=== PATIENT | female | born 1995 | race Caucasian/White ===

== ENCOUNTER 2016-10-06 13:02 | Emergency (ER) | payer SELFPAY ==
[2016-10-06 13:22] VITALS: BP 134/78
--- NOTE | 2016-10-06 13:34 | ER Document Report ---
ED Medical Screen (RME) - General Chief Complaint: Urinary Problem Stated Complaint: URNIARY PROBLEM Notes: 3 days urinary urgency, pyuria no hematuria admits to back pain as vaginal discharge with pelvic cramps LMP: 09/22/2016 I have greeted and performed a rapid initial assessment of this patient. A comprehensive ED assessment and evaluation of the patient, analysis of test results and completion of the medical decision making process will be conducted by additional ED providers. TRAVEL OUTSIDE OF THE [place] IN LAST 30 DAYS: No - Related Data Allergies/Adverse Reactions: Penicillins Allergy (Unknown, Verified 10/06/16 13:32) Past Medical History GI Medical History: Denies: Hx Gastroesophageal Reflux Disease - Immunizations Immunizations up to date: Yes Hx Diphtheria, Pertussis, Tetanus Vaccination: Yes Physical Exam - Vital signs Vitals: Temp Pulse Resp BP Pulse Ox 98.0 F 100 16 134/78 H 99 10/06/16 13:21 10/06/16 13:21 10/06/16 13:21 10/06/16 13:21 10/06/16 13:21 Course - Vital Signs Vital signs: Temp Pulse Resp BP Pulse Ox 98.0 F 100 16 134/78 H 99 10/06/16 13:21 10/06/16 13:21 10/06/16 13:21 10/06/16 13:21 10/06/16 13:21
[2016-10-06 14:04] LABS: APPEARANCE,URINE SLIGHTLY-CLOUDY; BILIRUBIN,URINE NEGATIVE (NEGATIVE); GLUCOSE, URINE NEGATIVE (NEGATIVE); KETONES,URINE NEGATIVE (NEGATIVE); LEUKOCYTE ESTERASE,URINE SMALL (NEGATIVE); NITRITE,URINE NEGATIVE (NEGATIVE); PROTEIN,URINE 30 mg/dL (NEGATIVE); URINE SPECIFIC GRAVITY 1.027
--- NOTE | 2016-10-06 15:32 | ER Document Report ---
ED General - General Chief Complaint: Urinary Problem Stated Complaint: URNIARY PROBLEM Mode of Arrival: Ambulatory Information source: Patient TRAVEL OUTSIDE OF THE [place] IN LAST 30 DAYS: No - HPI Onset: Other - This 21-year-old female presents to the emergency room today stating that she had frequency urgency burning for approximately one week. That she has been taking cranberry tablets to try and Aleve which he felt was probably urinary tract infection has not had any success. - Related Data Allergies/Adverse Reactions: Penicillins Allergy (Unknown, Verified 10/06/16 13:32) Past Medical History - Social History Smoking Status: Current Every Day Smoker Chew tobacco use (# tins/day): No Frequency of alcohol use: None Drug Abuse: None Family History: Reviewed & Not Pertinent Patient has suicidal ideation: No Patient has homicidal ideation: No Renal/ Medical History: Denies: Hx Peritoneal Dialysis GI Medical History: Denies: Hx Gastroesophageal Reflux Disease - Immunizations Immunizations up to date: Yes Hx Diphtheria, Pertussis, Tetanus Vaccination: Yes Review of Systems - Review of Systems Constitutional: No symptoms reported EENT: No symptoms reported Cardiovascular: No symptoms reported Respiratory: No symptoms reported Gastrointestinal: No symptoms reported Genitourinary: No symptoms reported Female Genitourinary: No symptoms reported Musculoskeletal: No symptoms reported Skin: No symptoms reported Hematologic/Lymphatic: No symptoms reported Neurological/Psychological: No symptoms reported Physical Exam - Vital signs Vitals: Temp Pulse Resp BP Pulse Ox 98.0 F 100 16 134/78 H 99 10/06/16 13:21 10/06/16 13:21 10/06/16 13:21 10/06/16 13:21 10/06/16 13:21 Interpretation: Normal - General General appearance: Appears well, Alert - HEENT Head: Normocephalic, Atraumatic Eyes: Normal Pupils: PERRL - Respiratory Respiratory status: No respiratory distress Chest status: Nontender Breath sounds: Normal Chest palpation: Normal - Cardiovascular Rhythm: Regular Heart sounds: Normal auscultation Murmur: No - Abdominal Inspection: Normal Distension: No distension Bowel sounds: Normal Tenderness: Nontender Organomegaly: No organomegaly - Back Back: Normal, Nontender - Extremities General upper extremity: Normal inspection, Nontender, Normal color, Normal ROM , Normal temperature General lower extremity: Normal inspection, Nontender, Normal color, Normal ROM , Normal temperature, Normal weight bearing. No: Saritha's sign - Neurological Neuro grossly intact: Yes Cognition: Normal Orientation: AAOx4 Aida Coma Scale Eye Opening: Spontaneous Aida Coma Scale Verbal: Oriented Aida Coma Scale Motor: Obeys Commands [place] Coma Scale Total: 15 Speech: Normal Motor strength normal: LUE, RUE, LLE, RLE Sensory: Normal - Psychological Associated symptoms: Normal affect, Normal mood - Skin Skin Temperature: Warm Skin Moisture: Dry Skin Color: Normal Course - Vital Signs Vital signs: Temp Pulse Resp BP Pulse Ox 98.0 F 100 16 134/78 H 99 10/06/16 13:21 10/06/16 13:21 10/06/16 13:21 10/06/16 13:21 10/06/16 13:21 - Laboratory Laboratory results interpreted by me: 10/06/16 13:44 Urine Protein 30 H Urine Urobilinogen 2.0 H Ur Leukocyte Esterase SMALL H 10/06/16 15:28 Discharge - Discharge Clinical Impression: UTI (urinary tract infection) Condition: Stable Disposition: HOME, SELF-CARE Instructions: Urinary Tract Infection ([facility]), Nitrofurantoin ([facility]) Additional Instructions: Urinary Tract Infection Your evaluation indicates that you have a urinary tract infection. This is due to germs growing in the bladder. This is a common problem. This infection usually responds quickly to antibiotics. Your antibiotic should be taken exactly as prescribed. Drink plenty of fluids -- three to four quarts a day. Occasionally, a bladder anesthetic will be prescribed to help stop the feeling of urgency until the antibiotic has a chance to clear the infection. This may cause your urine to be dark orange. Certain urine infections require a culture. If the doctor obtained a culture, the results will be back in two days. You should call to see if a change in treatment is needed. A repeat urinalysis after you finish treatment is often recommended. The physician will let you know if further testing is required. Call the doctor if you develop fever, chills, flank pain, inability to urinate, or blood in the urine. Follow-up with private doctor in 1 to 2 days for final radiology readings please return to the emergency room for any change worsening condition. Follow up with private M.D. for all other routine health care needs. Prescriptions: Cephalexin Monohydrate [Keflex 500 mg Capsule] 500 mg PO QID #20 capsule Phenazopyridine HCl [Pyridium 200 mg Tablet] 200 mg PO TID #15 tablet
== END 2016-10-06 16:26 | disposition home or self-care (01) ==
LOC: ER 13:02
DX: N39.0 Urinary tract infection, site not specified (principal); F17.200 Nicotine dependence, unspecified, uncomplicated; Z88.0 Allergy status to penicillin
CPT/HCPCS: 81001; 87086; 99283

== ENCOUNTER 2018-06-12 14:08 | Emergency (ER) | payer SELFPAY ==
[2018-06-12] MEDS ORDERED: CIPROFLOXACIN HCL/DEXAMETH OTIC DROP 7.5 ML AD ONE (14:37)
[2018-06-12] MEDS ORDERED: DEXAMETHASONE SOD PHOS INJ 10 MG/1 ML VIAL IM ONE (14:42)
--- NOTE | 2018-06-12 14:57 | ER Document Report ---
ED Respiratory Problem - General Chief Complaint: Cold Symptoms Stated Complaint: ABDOMINAL PAIN, EAR AND THROAT PAIN Time Seen by Provider: 06/12/18 14:23 Mode of Arrival: Ambulatory Information source: Patient Notes: Patient is a 23-year-old female comes emergency room with a 3-day onset of fever cold cough and congestion. She also complaining about right ear pain. She states she has vomited a few times and she just feels like "I am dying". Patient works at [employer] and had to call out of work yesterday and today because of how sick she feels. She states she only has a history medically zabala of polycystic ovarian disease and her periods are not regular because of this. Her last menstrual period was 2 months ago. She also states she has a history of STDs last time in January where she was treated and thinks that she is much better now. She currently wants us to only treat the complaint of congestion runny nose and cough. TRAVEL OUTSIDE OF THE [place] IN LAST 30 DAYS: No - HPI Patient complains to provider of: Cough Onset: Other - 3 days Duration: Continuous, Worse/persistent Initiating Event: Allergy, Exertion, Exposure to dust, URI Quality of pain: No pain Short of Breath: Moderate Cough: Productive Sputum amount: Scant Sputum color: Yellow Sputum consistency: Thick Associated symptoms: Chills, Congestion, Cough, Earache, Facial pain, PND, Runny nose, Wheezing Similar symptoms previously: No Recently seen / treated by doctor: No - Related Data Allergies/Adverse Reactions: Penicillins Allergy (Unknown, Verified 06/12/18 14:09) Past Medical History - General Information source: Patient - Social History Smoking Status: Current Every Day Smoker Cigarette use (# per day): Yes - Half-pack a day Chew tobacco use (# tins/day): No Smoking Education Provided: Yes Frequency of alcohol use: None Drug Abuse: Marijuana Lives with: Family Family History: Reviewed & Not Pertinent Patient has suicidal ideation: No Patient has homicidal ideation: No Renal/ Medical History: Denies: Hx Peritoneal Dialysis GI Medical History: Denies: Hx Gastroesophageal Reflux Disease - Immunizations Immunizations up to date: Yes Hx Diphtheria, Pertussis, Tetanus Vaccination: Yes Review of Systems - Review of Systems Constitutional: See HPI, Chills, Fever, Weakness EENT: Ear pain, Nose congestion, Nose discharge, Throat pain. denies: Ear discharge Cardiovascular: No symptoms reported Respiratory: See HPI, Cough, Wheezing Gastrointestinal: No symptoms reported Genitourinary: No symptoms reported Female Genitourinary: No symptoms reported Musculoskeletal: No symptoms reported Skin: No symptoms reported Hematologic/Lymphatic: No symptoms reported Neurological/Psychological: No symptoms reported -: Yes All other systems reviewed and negative Physical Exam - Vital signs Vitals: Temp Pulse Resp BP Pulse Ox 99.1 F 87 18 122/86 H 98 06/12/18 14:16 06/12/18 14:16 06/12/18 14:16 06/12/18 14:16 06/12/18 14:16 - Notes Notes: Patient is a 22-year-old female is well-nourished well-developed in no apparent distress. She does appear ill by her looks. He sounds congested - General General appearance: Alert - HEENT Head: Normocephalic, Atraumatic Eyes: Normal Ears: Pinna tenderness, Tragus tenderness External canal: Erythema, Swollen, Other - Examination patient's right ear shows the external canal to be very erythematous the landmarks are obscured. TM appears to be bulging with a serous fluid behind it. Canal looks irritated secondary to Q-tip use. And also to water exposure. Patient stated that she runs water in that ear because she wants it clean. And when it started to hurt she kept using Q-tips to try and get stuff out. She developed a otitis externa on the right. TM appears intact. Sinus: Maxillary, Swelling, Tenderness, Other - Patient displays. No: Frontal - maxillary tenderness greater on the right than the left. Frontals are negative for tenderness Nasal: Purulent discharge, Other - Examination of the nares shows they are erythematous and edematous with some purulent colored discharge. Mouth/Lips: Normal. No: Angioedema Mucous membranes: Normal, Moist Pharynx: Erythema, Post nasal drainage, Uvular edema. No: Exudate, Peritonsillar abscess, Retropharyngeal abscess, Tonsillar hypertrophy, Potential airway comprom. Neck: Anterior cervical chain, Lymphadenopathy, Supple. No: Posterior cervical chain, Carotid bruit, Kernig's, Meningismus, Neck mass, Shotty nodes, Subcutaneous emphysema, Thyroid nodule - Respiratory Respiratory status: No respiratory distress Chest status: Nontender Breath sounds: Decreased air movement, Rhonchi, Wheezing, Other - Auscultation patient's lungs show she has bilateral breath sounds breath sounds moderately decreased throughout there is a faint inspiratory expiratory wheeze noted. There is also upper airway rhonchi noted that clears on cough.. No: Rales, Stridor Chest palpation: Normal - Cardiovascular Rhythm: Regular Heart sounds: Normal auscultation Murmur: No - Abdominal Inspection: Normal Distension: No distension Bowel sounds: Normal Tenderness: Nontender Organomegaly: No organomegaly - Neurological Neuro grossly intact: Yes Orientation: AAOx4 Aida Coma Scale Eye Opening: Spontaneous Mobile Coma Scale Verbal: Oriented Mobile Coma Scale Motor: Obeys Commands Mobile Coma Scale Total: 15 Speech: Normal - Skin Skin Temperature: Warm Skin Moisture: Dry Skin Color: Normal, [place] Course - Re-evaluation Re-evalutation: 06/12/18 15:03 I had a long discussion with patient first she has a history of STDs and had originally wanted us to check it but then declined since she [facility] to the [facility]. She wanted us to center mostly on her upper respiratory kind of symptoms which we have and at this point giving that she has just a faint inspiratory expiratory wheeze and severe sinus congestion with drainage at this point I do not believe that any chest x-ray is needed. She is satting fine heart rates normal. We will treat with steroid taper, Sudafed, and Zithromax. Normally I would not treat with antibiotics but given patient has been attempting all the [id number] medications without any success and she has been getting more and more congested with a definite color to her sputum, I believe that this is warranted to do a short course of antibiotics. She informed me that having fevers of greater than 100.5 with chills at home and here she was running around 99 which is technically not a fever but she is taken ibuprofen/Tylenol recently. - Vital Signs Vital signs: Temp Pulse Resp BP Pulse Ox 99.1 F 87 18 122/86 H 98 06/12/18 14:16 06/12/18 14:16 06/12/18 14:16 06/12/18 14:16 06/12/18 14:16 Discharge - Discharge Clinical Impression: Otitis externa Qualifiers: Otitis externa type: unspecified type Chronicity: acute Laterality: right Qualified Code(s): H60.501 - Unspecified acute noninfective otitis externa, right ear Asthmatic bronchitis Qualifiers: Asthma severity: moderate Asthma persistence: persistent Asthma complication type: uncomplicated Qualified Code(s): J45.40 - Moderate persistent asthma, uncomplicated Sinusitis Qualifiers: Sinusitis location: maxillary Chronicity: acute Recurrence: non-recurrent Qualified Code(s): J01.00 - Acute maxillary sinusitis, unspecified Pharyngitis Qualifiers: Pharyngitis/tonsillitis etiology: unspecified etiology Qualified Code(s): J02.9 - Acute pharyngitis, unspecified Instructions: Use of Ear Drops ([facility]), Otitis Externa ([facility]), Bronchitis With Bronchospasm (Wheezing) ([facility]), Tonsillitis ([facility]) Additional Instructions: Home and rest today. Medication as prescribed. Use nasal saline 3-4 times a day to keep the nose moist and secretions then. As we discussed you may benefit from using some Afrin nasal spray. As I informed you this is a habit- forming type of medication because it works so well. Only use it at night before bed 2 sprays in each side of the nose this will allow you to open your airway up and breathe while you sleep. Leave it at home do not take it with you to work to get attempted to use it. Remember the more you use it more you have to use it in the least effective it is. So use it only at night. Decrease smoking as much as possible. As we have also discussed you have a infection to your canal on the right ear. Avoid using any kind of Q-tips at all. Avoid putting water in the ear must stay dry. Use the drops apply the drops 3 drops to that ear twice a day for 7 days. Should you have any concerns or problems if he spike a fever that is not controlled with Tylenol or Motrin or you become more short of breath return to ER for recheck. May also use the [facility] card for discount on your medication. Prescriptions: Azithromycin [Zithromax 250 mg Tablet] 250 mg PO ASDIR PRN #6 tablet PRN Reason: Prednisone [Sterapred Ds] 10 mg PO ASDIR PRN 6 Days #1 tab.ds.pk PRN Reason: Pseudoephedrine HCl [Sudafed 12 Hour] 120 mg PO BID #20 tablet.er Forms: Smoking Cessation Education, Return to Work
[2018-06-12 15:36] VITALS: BP 115/76
== END 2018-06-12 15:36 | disposition home or self-care (01) ==
LOC: ER 14:08
DX: J45.40 Moderate persistent asthma, uncomplicated (principal); J01.00 Acute maxillary sinusitis, unspecified; H60.501 Unspecified acute noninfective otitis externa, right ear; J02.9 Acute pharyngitis, unspecified; R10.9 Unspecified abdominal pain; R50.9 Fever, unspecified; R05 Cough; R09.81 Nasal congestion; H92.01 Otalgia, right ear; F17.210 Nicotine dependence, cigarettes, uncomplicated
CPT/HCPCS: 99283; 96372; J3490; J1100

== ENCOUNTER 2018-07-24 15:32 | Emergency (ER) | payer SELFPAY ==
[2018-07-24] MEDS ORDERED: IPRATROPIUM/ALBUTEROL 0.5-2.5 MG/3 ML AMPUL NEB ONE (16:13)
--- NOTE | 2018-07-24 16:38 | ER Document Report ---
HPI - HPI Patient complains to provider of: Cough Time Seen by Provider: 07/24/18 16:05 Onset: Last week Onset/Duration: Persistent Quality of pain: Achy Severity: Severe Pain Level: 5 Context: She presents emergency department with complaints of cough congestion and body aches for 1 week. Denies fever vomiting diarrhea. Reports she did have a temperature of 99.2 nights ago. Associated Symptoms: Nonproductive cough, Fever Exacerbated by: Denies Relieved by: Denies Similar symptoms previously: No Recently seen / treated by doctor: No - REPRODUCTIVE Reproductive: DENIES: : Past Medical History - General Information source: Patient Last Menstrual Period: 3Months ago patient reports she is irregular - Social History Smoking Status: Current Every Day Smoker Cigarette use (# per day): Yes Frequency of alcohol use: None Drug Abuse: None Occupation: [employer] Family History: Reviewed & Not Pertinent Patient has suicidal ideation: No Patient has homicidal ideation: No - Medical History Medical History: Negative Renal/ Medical History: Denies: Hx Peritoneal Dialysis GI Medical History: Denies: Hx Gastroesophageal Reflux Disease Surgical Hx: Negative - Immunizations Immunizations up to date: Yes Hx Diphtheria, Pertussis, Tetanus Vaccination: Yes Vertical Provider Document - CONSTITUTIONAL Agree With Documented VS: Yes Exam Limitations: No Limitations General Appearance: WD/WN, No Apparent Distress - INFECTION CONTROL TRAVEL OUTSIDE OF THE [place] IN LAST 30 DAYS: No - HEENT HEENT: Atraumatic, Normocephalic. negative: Conjuctival Injection, Pharyngeal Exudate, Pharyngeal Tenderness, Pharyngeal Erythema, Tympanic Membrane Red, Tympanic Membrane Bulging - NECK Neck: Normal Inspection, Supple. negative: Lymphadenopathy-Left, Lymphadenopathy-Right - RESPIRATORY Respiratory: No Respiratory Distress, Chest Non-Tender, Rhonchi, Wheezing - CARDIOVASCULAR Cardiovascular: Regular Rate - GI/ABDOMEN Gastrointestinal: Abdomen Soft, Abdomen Non-Tender - MUSCULOSKELETAL/EXTREMETIES Musculoskeletal/Extremeties: SHERRI PASTRANA - NEURO Level of Consciousness: Awake, Alert, Appropriate Motor/Sensory: No Motor Deficit - DERM Integumentary: Warm, Dry, No Rash Course - Re-evaluation Re-evalutation: 07/24/18 16:36 Neb treatment and chest x-ray ordered. 07/24/18 17:37 She instructed on left lower lobe pneumonia instructed on Z-Korey Tessalon Perles albuterol inhaler as well as [place]. Patient instructed on the importance of monitoring to assure follow-up with her primary care provider for recheck. She verbalized understanding to all instructions. She reports she felt better after the neb treatment. Dictation of this chart was performed using voice recognition software; therefore, there may be some unintended grammatical errors. 07/24/18 17:37 - Vital Signs Vital signs: Temp Pulse Resp BP Pulse Ox 98.3 F 71 16 118/73 94 07/24/18 15:56 07/24/18 15:56 07/24/18 15:56 07/24/18 15:56 07/24/18 15:56 - Diagnostic Test Radiology reviewed: Image reviewed, Reports reviewed - XAM DESCRIPTION: CHEST 2 VIEWS COMPLETED DATE/TIME: 07/24/2018 4:35 pm REASON FOR STUDY: cough, fever COMPARISON: None. EXAM PARAMETERS: NUMBER OF VIEWS: two views TECHNIQUE: Digital Frontal and Lateral radiographic views of the chest acquired. RADIATION DOSE: NA LIMITATIONS: none FINDINGS: LUNGS AND PLEURA: Parenchymal opacity at the left base. Right lung is clear. MEDIASTINUM AND HILAR STRUCTURES: No masses or contour abnormalities. HEART AND VASCULAR STRUCTURES: Heart normal size. No evidence for failure. BONES: No acute findings. HARDWARE: None in the chest. OTHER: No other significant finding. IMPRESSION: Left lower lobe pneumonia Discharge - Discharge Clinical Impression: Cough congestion wheeze Left lower lobe pneumonia Qualifiers: Pneumonia type: due to unspecified organism Qualified Code(s): J18.1 - Lobar pneumonia, unspecified organism Condition: Stable Disposition: HOME, SELF-CARE Instructions: Azithromycin ([facility]), Bronchodilators ([facility]), Tessalon Perles ([facility]) , Pneumonia ([facility]), Oral Narcotic Medication ([facility]) Additional Instructions: *You have been evaluated for cough,congestion, pneumonia *Increase fluid intake as discussed *Take Tylenol or Motrin for aches and pains *Take medication as prescribed *Use the inhaler as indicated *Monitor your temperature, take Tylenol as indicated *Follow up with a primary care provider within one week *Quit smoking *Return to ED for worsening condition, changes, needs, increased cough, difficulty breathing, concerns Prescriptions: Azithromycin [Zithromax 250 mg Tablet] 250 mg PO ASDIR PRN #6 tablet PRN Reason: Benzonatate [Tessalon Perles 100 mg Capsule] 100 mg PO ASDIR PRN #40 capsule PRN Reason: Forms: Smoking Cessation Education, Return to Work
--- NOTE | 2018-07-24 16:51 | RADIOLOGY REPORT (SQ) ---
EXAM DESCRIPTION: CHEST 2 VIEWS COMPLETED DATE/TIME: 07/24/2018 4:35 pm REASON FOR STUDY: cough, fever COMPARISON: None. EXAM PARAMETERS: NUMBER OF VIEWS: two views TECHNIQUE: Digital Frontal and Lateral radiographic views of the chest acquired. RADIATION DOSE: NA LIMITATIONS: none FINDINGS: LUNGS AND PLEURA: Parenchymal opacity at the left base. Right lung is clear. MEDIASTINUM AND HILAR STRUCTURES: No masses or contour abnormalities. HEART AND VASCULAR STRUCTURES: Heart normal size. No evidence for failure. BONES: No acute findings. HARDWARE: None in the chest. OTHER: No other significant finding. IMPRESSION: Left lower lobe pneumonia. TECHNICAL DOCUMENTATION: JOB ID: [id number] [employer]- All Rights Reserved Reading location - IP/workstation name: [email or web address]
[2018-07-24] MEDS ORDERED: HYDROCODONE/ACETAMINOPHEN 5-325 MG (6 TAB/ER DISP) PO PRN (17:36)
[2018-07-24 17:54] VITALS: BP 113/75
[2018-07-24] MEDS ORDERED: ALBUTEROL SULFATE HFA (90 MCG/PUFF) 8 GM MDI (1 MDI/ER DISP) IH ONE (18:03)
== END 2018-07-24 18:09 | disposition home or self-care (01) ==
LOC: ER 15:32
DX: J18.1 Lobar pneumonia, unspecified organism (principal); R68.89 Other general symptoms and signs; M79.10 Myalgia, unspecified site; F17.210 Nicotine dependence, cigarettes, uncomplicated
CPT/HCPCS: 94640; 99283; 71046; J3490; J7620

== ENCOUNTER 2019-03-31 09:14 | Emergency (ER) | payer SELFPAY ==
--- NOTE | 2019-03-31 09:35 | ER Document Report ---
ED GI/ - General Chief Complaint: Low Back Pain Stated Complaint: FLANK PAIN Time Seen by Provider: 03/31/19 09:24 Mode of Arrival: Ambulatory Information source: Patient Notes: 23-year-old female presents to ED for complaint of pain in lower back bilateral flanks worse on the right. Patient states she has had frequency urgency and foul smell with urine she also has pain when she urinates. She states the pain has been for about a month but is a lot worse yesterday and today. Patient is alert oriented respirations regular and unlabored speaking in full sentences walks with even steady gait. TRAVEL OUTSIDE OF THE [place] IN LAST 30 DAYS: No - HPI Patient complains to provider of: Flank pain, Other - Urinary urgency frequency pain with urination and foul smell Onset: Other - Started a month ago but got much worse yesterday Timing/Duration: Gradual Quality of pain: Pressure, Sharp Severity at maximum: Moderate Severity in ED: Moderate Pain Level: 4 Location: Left flank, Right flank, Low back LMP: 3 months Associated symptoms: Odor, Urinary frequency, Urinary urgency, Vaginal discharge, Other - Bilateral flank pain worse on the right Exacerbated by: Other - Urination Relieved by: Denies Similar symptoms previously: Yes Recently seen / treated by doctor: No - Related Data Allergies/Adverse Reactions: Penicillins Allergy (Unknown, Verified 07/24/18 15:34) Past Medical History - General Information source: Patient - Social History Smoking Status: Current Every Day Smoker - 1/2 pack/day Cigarette use (# per day): Yes Smoking Education Provided: Yes - 4 minutes Frequency of alcohol use: None Drug Abuse: None Lives with: Family Family History: Reviewed & Not Pertinent Patient has suicidal ideation: No Patient has homicidal ideation: No - Past Medical History Cardiac Medical History: Reports: None Pulmonary Medical History: Reports: None EENT Medical History: Reports: None Neurological Medical History: Reports: None Endocrine Medical History: Reports: None Renal/ Medical History: Reports: Hx Ovarian Cysts Malignancy Medical History: Reports: None GI Medical History: Reports: None Musculoskeletal Medical History: Reports None Skin Medical History: Reports None Psychiatric Medical History: Reports: None Traumatic Medical History: Reports: None Infectious Medical History: Reports: None Surgical Hx: Negative Past Surgical History: Reports: None - Immunizations Immunizations up to date: Yes Hx Diphtheria, Pertussis, Tetanus Vaccination: Yes Review of Systems - Review of Systems Constitutional: No symptoms reported EENT: No symptoms reported Cardiovascular: No symptoms reported Respiratory: No symptoms reported Gastrointestinal: No symptoms reported Genitourinary: Frequency, Flank pain, Urgency Female Genitourinary: Vaginal odor Musculoskeletal: Back pain, Muscle pain Skin: No symptoms reported Hematologic/Lymphatic: No symptoms reported Neurological/Psychological: No symptoms reported -: Yes All other systems reviewed and negative Physical Exam - Vital signs Vitals: Temp Pulse Resp BP Pulse Ox 98.3 F 84 16 117/62 98 03/31/19 09:23 03/31/19 09:23 03/31/19 09:23 03/31/19 09:23 03/31/19 09:23 Interpretation: Normal - General General appearance: Appears well, Alert - HEENT Head: Normocephalic, Atraumatic Eyes: Normal Pupils: PERRL - Respiratory Respiratory status: No respiratory distress Chest status: Nontender Breath sounds: Normal Chest palpation: Normal - Cardiovascular Rhythm: Regular Heart sounds: Normal auscultation Murmur: No - Abdominal Inspection: Normal Distension: No distension Bowel sounds: Normal Tenderness: Tender Organomegaly: No organomegaly - Back Back: CVA tenderness - Extremities General upper extremity: Normal inspection, Nontender, Normal color, Normal ROM, Normal temperature General lower extremity: Normal inspection, Nontender, Normal color, Normal ROM, Normal temperature, Normal weight bearing. No: Saritha's sign - Neurological Neuro grossly intact: Yes Cognition: Normal Orientation: AAOx4 Maljamar Coma Scale Eye Opening: Spontaneous [place] Coma Scale Verbal: Oriented [place] Coma Scale Motor: Obeys Commands Maljamar Coma Scale Total: 15 Speech: Normal Motor strength normal: LUE, RUE, LLE, RLE Sensory: Normal - Psychological Associated symptoms: Normal affect, Normal mood - Skin Skin Temperature: Warm Skin Moisture: Dry Skin Color: Normal Course - Re-evaluation Re-evalutation: 03/31/19 10:50 Discussed ultrasound and lab results with patient and written report of ultrasound labs were given to patient. Patient was treated with azithromycin, Rocephin, doxycycline, and Flagyl for her UTI bacterial vaginosis and we have not got the results of the GC chlamydia so she was prophylactically treated for those. Patient will call back for the results of the GC and chlamydia a couple hours. I have given her the number to my office. Patient is alert oriented respirations regular and unlabored she is ready to go home. Patient verbalized understanding and agreement with treatment plan. - Vital Signs Vital signs: Temp Pulse Resp BP Pulse Ox 98.3 F 84 16 117/62 98 03/31/19 09:23 03/31/19 09:23 03/31/19 09:23 03/31/19 09:23 03/31/19 09:23 - Laboratory Laboratory results interpreted by me: 03/31/19 09:35 Urine Ketones 20 H Urine Urobilinogen 2.0 H Ur Leukocyte Esterase LARGE H - Diagnostic Test Radiology reviewed: Image reviewed, Reports reviewed Discharge - Discharge Clinical Impression: Bacterial vaginosis UTI (urinary tract infection) Qualifiers: Urinary tract infection type: acute cystitis Hematuria presence: with hematuria Qualified Code(s): N30.01 - Acute cystitis with hematuria Condition: Stable Disposition: HOME, SELF-CARE Instructions: Family Physicians / Practices Additional Instructions: URINARY TRACT INFECTION: Your evaluation indicates that you have a urinary tract infection. This is due to germs growing in the bladder. This is a common problem. This infection usually responds quickly to antibiotics. Your antibiotic should be taken exactly as prescribed. Drink plenty of fluids -- three to four quarts a day. Occasionally, a bladder anesthetic will be prescribed to help stop the feeling of urgency until the antibiotic has a chance to clear the infection. This may cause your urine to be dark orange. Certain urine infections require a culture. If the doctor obtained a culture, the results will be back in two days. You should call to see if a change in treatment is needed. A repeat urinalysis after you finish treatment is often recommended. The physician will let you know if further testing is required. Call the doctor if you develop fever, chills, flank pain, inability to urinate, or blood in the urine. VAGINOSIS, BACTERIAL: Your exam shows you have bacterial vaginosis. This condition is due to an overgrowth of bacteria in the vagina. Symptoms may include vaginal itching or pain, a smelly discharge, and sometimes burning with urination. Normally this is not transmitted by sexual contact. Vaginosis can be treated with oral or topical antibiotics. Metronidazole (Flagyl) pills are usually effective. Topical vaginal creams include Cleocin and Metro-Gel. You should avoid sexual contact until your symptoms are all better. Call the doctor if you develop pelvic pain, fever, or problems with urination, or if you don't improve as expected. CEPHALOSPORINS: An antibiotic of the cephalosporin class has been prescribed. This type of antibiotic covers a wide variety of infections, including those of the skin, lungs, middle ear, and urinary tract. This antibiotic is somewhat similar to the penicillin family. In rare cases, a person who is allergic to penicillin will also be allergic to this medication. If you have had a severe allergic reaction to penicillin, and have not taken this antibiotic since that time, notify your doctor. Antibiotics which cover many germs ("broad spectrum" antibiotics) are more likely to cause diarrhea or "yeast" infections. Women prone to vaginal yeast problems may suffer an attack after taking this antibiotic. In infants, oral thrush (white spots "stuck" on the cheek) or yeast diaper rash may result. See your doctor if these problems occur. Call the doctor at once if you develop hives, itching, shortness of breath, or lightheadedness. DOXYCYCLINE: Doxycycline (Vibramycin, Doryx) is an antibiotic of the tetracycline family. This type of drug is useful for infections of the respiratory tract and genital tract, and is sometimes used for intestinal infections. Unlike most tetracyclines, doxycycline can be taken with food. It is longer acting, and (usually) less prone to side effects than regular tetracy brantley. Tetracycline antibiotics can stain immature teeth and SHOULD NOT BE TAKEN BY CHILDREN, NURSING MOTHERS, OR WOMEN. Tetracyclines can make you more prone to sunburn. Abdominal cramping, nausea, and diarrhea are occasional side effects. Women may experience vaginal yeast infections. Call the doctor at once if you develop hives, itching, shortness of breath, or lightheadedness. AZITHROMYCIN: Azithromycin (Zithromax) is a broad spectrum antibiotic in the same class as erythromycin. It can treat a variety of bacterial infections, but is most frequently used for respiratory infections. Azithromycin is extremely long-lasting. It accumulates in body tissues and continues to kill bacteria for many days. In order to improve absorption, Azithromycin should be taken at least one hour before or two hours after a meal. It does not have the same strong tendency to upset the stomach as erythromycin and is usually very well tolerated. Patients who have had a rash or other true allergic reactions to erythromycin should not take this medication. Call if you develop gastrointestinal distress, severe diarrhea, rash, hives, itching, or shortness of breath. METRONIDAZOLE: Metronidazole (Flagyl) has been prescribed. This medication is used to kill a type of bacteria called anaerobes, and protozoan parasites such as trichomonas and Giardia. Flagyl often causes a metallic taste in the mouth and mild nausea. Do not use alcohol in any form with Flagyl (including alcohol in medication elixirs). Flagyl interacts with alcohol to cause flushing, palpitations, headache, stomach cramps, and vomiting. Do not use Flagyl if you are taking Antabuse (disulfiram). Call the doctor at once if you develop rash, shortness of breath, itching, or lightheadedness. Antinausea Medication You have been given a medication to suppress nausea and vomiting. This type of medication can be given as a shot, pill, or suppository. It will usually last for many hours. Pills and shots usually last six to eight hours, suppositories last about 12 hours. For the typical illness, only one or two doses of the me dication may be necessary. Mild lightheadedness may occur. This type of medicine can cause drowsiness. Do not drive or operate dangerous machinery while under its influence. Do not mix with alcohol. See your doctor at once if you have muscle spasms or tightness, or uncontrollable motions (particularly of the neck, mouth, or jaw). Persistent vomiting or severe lightheadedness should also be evaluated by the physician. FOLLOW-UP CARE: If you have been referred to a physician for follow-up care, call the physicians office for an appointment as you were instructed or within the next two days. If you experience worsening or a significant change in your symptoms, notify the physician immediately or return to the Emergency Department at any time for re-evaluation. Prescriptions: Doxycycline Hyclate 100 mg PO BID #20 capsule Metronidazole [Flagyl 500 mg Tablet] 500 mg PO BID #14 tablet Promethazine HCl [Phenergan 25 mg Tablet] 25 mg PO Q6H PRN #15 tablet PRN Reason: Forms: Smoking Cessation Education, Return to Work
[2019-03-31 09:51] LABS: AMORPHOUS SEDIMENT,URINE TRACE /HPF; APPEARANCE,URINE CLOUDY; BILIRUBIN,URINE NEGATIVE (NEGATIVE); COLOR,URINE YELLOW; GLUCOSE, URINE NEGATIVE (NEGATIVE); KETONES,URINE 20 mg/dL (NEGATIVE); LEUKOCYTE ESTERASE,URINE LARGE (NEGATIVE); NITRITE,URINE NEGATIVE (NEGATIVE); PROTEIN,URINE NEGATIVE (NEGATIVE); URINE SPECIFIC GRAVITY 1.013
[2019-03-31 09:56] LABS: T.VAGINALIS (WET MOUNT) NO TRICHOMONAS SEEN
[2019-03-31 09:57] LABS: BACTERIA (WET MOUNT) 4+ BACTERIA SEEN; EPITHELIALS (WET MOUNT) 4+ EPITHELIALS SEEN; RBCS (WET MOUNT) FEW RBCS SEEN; WBCS (WET MOUNT) 3+ WBCS SEEN; YEAST (WET MOUNT) NO YEAST SEEN
[2019-03-31] MEDS ORDERED: METRONIDAZOLE 500 MG TABLET PO ONE (10:01)
[2019-03-31] MEDS ORDERED: LIDOCAINE 1% INJ-PF (10 MG/ML) 30 ML SDV INJ ONE (10:01)
[2019-03-31] MEDS ORDERED: AZITHROMYCIN 250 MG TABLET PO ONE (10:01)
[2019-03-31] MEDS ORDERED: CEFTRIAXONE INJ 1000 MG VIAL IM ONE (10:01)
[2019-03-31] MEDS ORDERED: DOXYCYCLINE HYCLATE 100 MG TABLET PO ONE (10:01)
--- NOTE | 2019-03-31 10:38 | RADIOLOGY REPORT (SQ) ---
EXAM DESCRIPTION: U/S RETROPERITON (RENAL/AORTA) COMPLETED DATE/TIME: 03/31/2019 10:28 am REASON FOR STUDY: flank pain COMPARISON: None. TECHNIQUE: Dynamic and static grayscale images acquired of the kidneys and bladder and recorded on P ACS. Additional selected color Doppler and spectral images recorded. LIMITATIONS: None. FINDINGS: RIGHT KIDNEY: Normal size. Normal echogenicity. No solid or suspicious masses. No hydronep hrosis. No calcifications. LEFT KIDNEY: Normal size. Normal echogenicity. No solid or suspicious masses. No hydronephrosis. No calcifications. BLADDER: No masses. The bladder is decompressed. OTHER FINDINGS: No other significant finding. IMPRESSION: Normal ultrasound examination of the kidneys and bladder. No hydronephrosis. The bladd er is decompressed. TECHNICAL DOCUMENTATION: JOB ID: [id number] [employer]- All Rights Reserved Reading location - IP/workstation name: [email or web address]
[2019-03-31 10:51] VITALS: BP 108/74
[2019-03-31 11:18] LABS: CHLAM PCR NOT DETECTED (NOT DETECT)
== END 2019-03-31 10:54 | disposition home or self-care (01) ==
LOC: ER 09:14
DX: N30.01 Acute cystitis with hematuria (principal); N76.0 Acute vaginitis; B96.89 Other specified bacterial agents as the cause of diseases classified elsewhere; M54.5 Low back pain; R39.15 Urgency of urination; R35.0 Frequency of micturition; R10.9 Unspecified abdominal pain; F17.210 Nicotine dependence, cigarettes, uncomplicated
CPT/HCPCS: 99406; 99284; 96372; 87086; 87210; 81025; 87088; 81001; 87491; 87591; 76770; J3490; J0696; 87186

== ENCOUNTER 2019-09-04 18:30 | Emergency (ER) | payer SELFPAY ==
[2019-09-04 18:47] VITALS: BP 118/85
[2019-09-04] MEDS ORDERED: TETRACAINE HCL 0.5% OPH SOLN 4 ML OU ONE (18:56)
--- NOTE | 2019-09-04 19:01 | ER Document Report ---
HPI - HPI Patient complains to provider of: eye irritation Time Seen by Provider: 09/04/19 18:53 Onset: Yesterday Onset/Duration: Sudden Quality of pain: Other - itchy Context: 24-year-old female presents emergency department with complaints of bilateral itchy eyes. Reports it started yesterday she thought she had make-up in her eyes. She kept rubbing them. She reports she woke up this morning and had matting to both eyes had to wash her eyes to get the discharge out. She reports she feels like it started in the right eye and then went to the left eye. No exposure to pinkeye that she is aware of. She reports she is supposed to wear glasses but does not have any. Denies fever vomiting diarrhea. Associated Symptoms: None Exacerbated by: Denies Relieved by: Denies Similar symptoms previously: No Recently seen / treated by doctor: No - REPRODUCTIVE Reproductive: DENIES: : Past Medical History - General Information source: Patient - Social History Smoking Status: Unknown if Ever Smoked Family History: Reviewed & Not Pertinent Patient has suicidal ideation: No Patient has homicidal ideation: No Renal/ Medical History: Reports: Hx Ovarian Cysts. Denies: Hx Peritoneal Dialysis GI Medical History: Denies: Hx Gastroesophageal Reflux Disease Psychiatric Medical History: Reports: Hx Bipolar Disorder, Hx Depression - anxiety Surgical Hx: Negative - Immunizations Immunizations up to date: Yes Hx Diphtheria, Pertussis, Tetanus Vaccination: Yes Vertical Provider Document - CONSTITUTIONAL Agree With Documented VS: Yes Exam Limitations: No Limitations General Appearance: WD/WN, No Apparent Distress - INFECTION CONTROL TRAVEL OUTSIDE OF THE [place] IN LAST 30 DAYS: No - HEENT HEENT: Atraumatic, Conjuctival Injection, Normocephalic, PERRLA - NECK Neck: Supple - RESPIRATORY Respiratory: No Respiratory Distress - CARDIOVASCULAR Cardiovascular: Regular Rate - MUSCULOSKELETAL/EXTREMETIES Musculoskeletal/Extremeties: VICTORIANO, SHERRI - NEURO Level of Consciousness: Awake, Alert, Appropriate - DERM Integumentary: Warm, Dry Course - Re-evaluation Re-evalutation: 09/04/19 20:07 Patient presents emergency department with complaints of irritation to both eyes. Reports it started in the right moved to the left. She reports discharge from both eyes woke up with matting this morning. Tetracaine was applied to both eyes she reports relief after tetracaine applied. Fluorescein used on both eyes. No abrasion noted. Patient will be treated for conjunctivitis based on symptoms of discharge matting irritation. She was instructed on signs and symptoms of allergic reaction to the antibiotic Besivance. She was instructed to follow-up with creative services manager for recheck within the week. She was also instructed to return to the emergency department for worsening symptoms or any signs of allergic reaction to the antibiotic. She verbalized understanding to all instructions. - Vital Signs Vital signs: Temp Pulse Resp BP Pulse Ox 99.7 F 99 18 118/85 97 09/04/19 18:47 09/04/19 18:47 09/04/19 18:47 09/04/19 18:47 09/04/19 18:47 Procedures - Eye Procedure Bilateral Eye Irrigated w/ Saline (ccs): 20 Alcaine Drops Administered: Yes - tetracaine Fluorescein applied: Bilateral Antibiotic Oinment/Drps Admin: Both eyes Slit lamp used: No Notes: 09/04/19 20:06 brown lamp utilized. Tetracaine applied to both eyes. Patient reports relief of irritation. Fluorescein used on both eyes. No abrasion noted. Patient will be treated for conjunctivitis based on symptoms of discharge matting irritation. Discharge - Discharge Clinical Impression: Irritation of both eyes Condition: Stable Disposition: HOME, SELF-CARE Instructions: Conjunctivitis ([facility]), Eyedrop Use ([facility]) Additional Instructions: *You have been evaluated for bilateral eye irritation, bacterial conjunctivitis *Use eye drops as prescribed- Ophthalmic: Instill 1 drop into both eyes 3 times daily (4 to 12 hours apart) for 7 days *Good hand washing- Do not reuse wash clothes or towels after wiping eyes *Follow up with an piece goods clerk within one week for recheck *Return to ED for worsening condition, changes, needs Forms: Return to Work
[2019-09-04] MEDS ORDERED: BESIFLOXACIN HCL 0.6% OPH SUSP 5 ML BOTTLE OU ONE (19:32)
[2019-09-04] MEDS ORDERED: BESIFLOXACIN HCL 0.6% OPH SUSP 5 ML BOTTLE ONE (20:12)
== END 2019-09-04 20:26 | disposition home or self-care (01) ==
LOC: ER 18:30
DX: H57.9 Unspecified disorder of eye and adnexa (principal)
CPT/HCPCS: 99283; J3490

== ENCOUNTER 2019-09-15 14:11 | Emergency (ER) | payer OTHER ==
[2019-09-15] MEDS ORDERED: CYCLOBENZAPRINE HCL 10 MG TABLET PO ONE (15:44)
[2019-09-15] MEDS ORDERED: ACETAMINOPHEN 325 MG TABLET PO ONE (15:44)
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
[2019-09-15 16:28] LABS: APPEARANCE,URINE SLIGHTLY-CLOUDY; BILIRUBIN,URINE NEGATIVE (NEGATIVE); COLOR,URINE YELLOW; GLUCOSE, URINE NEGATIVE (NEGATIVE); KETONES,URINE NEGATIVE (NEGATIVE); LEUKOCYTE ESTERASE,URINE SMALL (NEGATIVE); NITRITE,URINE NEGATIVE (NEGATIVE); PROTEIN,URINE NEGATIVE (NEGATIVE); URINE SPECIFIC GRAVITY 1.025
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
[2019-09-15 18:02] VITALS: BP 168/94
== END 2019-09-15 18:01 | disposition home or self-care (01) ==
LOC: ER 14:11
DX: N39.0 Urinary tract infection, site not specified (principal); M79.604 Pain in right leg; M54.9 Dorsalgia, unspecified; V89.2XXA Person injured in unspecified motor-vehicle accident, traffic, initial encounter; F17.200 Nicotine dependence, unspecified, uncomplicated; Z88.0 Allergy status to penicillin
CPT/HCPCS: 72070; 72110; 81001; 81025; 87086; 99283